=== PATIENT | female | born 1965 | race Caucasian/White ===

== ENCOUNTER 2020-04-30 13:25 | Emergency (ER) | payer OTHER ==
[~2020-04-30] VITALS: Ht 162.6 cm; Wt 61.2 kg
[~2020-04-30 13:25] MED LIST: CATAFLAM50 MG PO
[2020-04-30] MEDS ORDERED: FLEXERIL PO (13:40)
[2020-04-30] MEDS ORDERED: HORIZANT300 MG (13:40)
== END 2020-04-30 21:24 | disposition home or self-care (01) ==
LOC: ER 13:25
DX: I88.8 Other nonspecific lymphadenitis (principal); Z20.828 Contact with and (suspected) exposure to other viral communicable diseases

== ENCOUNTER 2020-11-20 13:02 | Emergency (ER) | payer OTHER ==
[~2020-11-20] VITALS: Ht 162.6 cm; Wt 54.4 kg
[~2020-11-20 13:02] MED LIST changes: +FLEXERIL PO; +HORIZANT300 MG
== END 2020-11-20 15:44 | disposition home or self-care (01) ==
LOC: ER 13:02
DX: S10.86XA Insect bite of other specified part of neck, initial encounter (principal); W57.XXXA Bitten or stung by nonvenomous insect and other nonvenomous arthropods, initial encounter; Y93.89 Activity, other specified; Y92.89 Other specified places as the place of occurrence of the external cause; Y99.8 Other external cause status

== ENCOUNTER → 2021-10-07 08:21 | Outpatient (CLI) | payer OTHER | END | disposition home or self-care (01) | LOC: SONOGRAMA 08:21 | PROVIDERS: ATTEND Obstetrics & Gynecology | DX: N84.0 Polyp of corpus uteri (principal) ==